=== PATIENT | female | born 1945 | race Caucasian/White ===

== ENCOUNTER 2021-10-21 06:03 | Inpatient (IN) ==
[2021-10-21] MEDS ORDERED: CeFAZolin Syr 2,000MG/20 ML 2,000 MG/20 ML SYRINGE IVPB ONE (06:28)
[2021-10-21] MEDS ORDERED: Ringers Solution, Lactated 1,000 ML IVC SCH (06:30)
[2021-10-21] MEDS ORDERED: *HR* HYDROmorphone PF 0.5 MG/0.5 ML SYRINGE IVP PRN (08:16)
[2021-10-21] MEDS ORDERED: Ondansetron 4 MG/2 ML VIAL IVP PRN ×2 (08:16→15:01)
[2021-10-21] MEDS ORDERED: *HR* OxyCODONE Immed Rel 5 MG TABLET PO PRN (08:16)
[2021-10-21] MEDS ORDERED: Acetaminophen IV 1,000 MG/100 ML BAG IVPB ONE (08:30)
[2021-10-21] MEDS ORDERED: *HR* FentaNYL (PF) 100 MCG/2 ML VIAL ONE (08:39)
[2021-10-21] MEDS ORDERED: *HR* Propofol 200 MG/20 ML VIAL IVP ONE (08:39)
[2021-10-21] MEDS ORDERED: *HR* Rocuronium Bromide 50 MG/5 ML VIAL ONE (08:42)
[2021-10-21] MEDS ORDERED: Lidocaine -MPF 2% 2 ML VIAL ONE (08:42)
[2021-10-21] MEDS ORDERED: Ondansetron 4 MG/2 ML VIAL ONE (08:42)
[2021-10-21] MEDS ORDERED: EPHEDrine 50 MG/ML VIAL ONE (10:24)
[2021-10-21] MEDS ORDERED: *HR* HYDROMORPHONE 2 MG/ML VIAL ONE (11:08)
[2021-10-21] MEDS ORDERED: Naloxone 0.4 MG/ML INJ IVP PRN (15:01)
[2021-10-21] MEDS ORDERED: *HR* HYDROcodone/Acet 5/325 mg TABLET PO PRN (15:01)
[2021-10-21] MEDS ORDERED: Acetaminophen 325 MG TABLET PO PRN (15:01)
[2021-10-21] MEDS ORDERED: *HR* Metoprolol 5 MG/5 ML VIAL IVP PRN (15:01)
[2021-10-21] MEDS: *HR* Heparin 5,000 UNIT/ML VIAL SQ SCH (17:25)
[2021-10-22] MEDS: *HR* Heparin 5,000 UNIT/ML VIAL SQ SCH ×2 (00:08→07:48)
[2021-10-22] MEDS ORDERED: atenoloL 50 MG TABLET PO SCH (10:15)
[2021-10-22] MEDS ORDERED: allopurinoL 300 MG TABLET PO SCH (10:15)
[2021-10-22 11:37] VITALS: BP 122/81; PULSE 58; TEMP 97.2; O2SAT 96
[2021-10-22] MEDS ORDERED: *HR* Metformin 500 MG TABLET PO SCH (17:00)
== END 2021-10-22 16:27 | disposition home or self-care (01) | DRG 581 ==
LOC: SAMDAY 06:03 → 3ANU 14:49
PROVIDERS: ADMIT Surgery; ATTEND Surgery
PROC: GENSENT (ICD-10-PCS; 2021-10-21 09:10)